=== PATIENT | female | born 1975 | race Caucasian/White ===

== ENCOUNTER 2018-04-03 15:31 | Outpatient (CLI) | payer OTHER, SELFPAY ==
[2018-04-03 16:13] LABS: HGB 13.4 g/dL (12.0-15.5); Mean Corp. HGB Concentration 33.5 g/dL (32.0-36.0); Mean Corpuscular Hemoglobin 31.4 pg (27.0-33.0); Mean Corpuscular Volume 93.7 fL (80-95); Mean Platelet Volume 10.8 fL (8.0-11.0); Platelet Count 231 x1000/uL (130-400); RBC 4.27 m/cumm (4.00-5.20); RBC Distribution Width 12.8 % (11.7-14.6); White Blood Cell Count 7.52 k/cumm (4.4-10.8)
[2018-04-03 16:50] LABS: Hemoglobin A1C 5.8 % (4.5-6.2)
[2018-04-03 17:30] LABS: ALT 25 U/L (12-78); AST 19 U/L (15-37); Albumin 3.8 g/dL (3.4-5.0); Alkaline Phosphatase 49 U/L (46-116); Anion Gap 7.6 mmol/L (3-11); BUN 13 mg/dL (7-18); Bilirubin, Total 0.2 mg/dL (0.2-1.0); CO2 28.4 mmol/L (21.0-32.0); CREATININE 0.76 mg/dL (0.55-1.02); Calcium 8.5 mg/dL (8.5-10.1); Chloride 103 mmol/L (98-107); Cholesterol 171 mg/dL (50-200); Glucose 104 mg/dL (70-100); HDL Cholesterol 50 mg/dL (40-60); LDL CHOLESTEROL 96 mg/dL (<100); Potassium 3.9 mmol/L (3.5-5.1); Sodium 139 mmol/L (136-145); Total Protein 7.1 g/dL (6.4-8.2); Triglyceride 165 mg/dL (30-150)
== END 2018-04-03 15:51 ==
PROVIDERS: PCP Nurse Practitioner; Visit Provider Nurse Practitioner
DX: Z00.00 Encounter for general adult medical examination without abnormal findings (principal); E66.3 Overweight; Z13.220 Encounter for screening for lipoid disorders
CPT/HCPCS: 36415; 80053; 80061; 83721; 85027; 83036

== ENCOUNTER 2019-06-01 01:19 | Outpatient (CLI) | payer OTHER, SELFPAY ==
--- NOTE | 2019-06-01 15:30 | DI.MAMMO_ITS ---
EXAM: MAMMO SCREENING CLINICAL HISTORY: screening, Z12.39 TECHNIQUE: Mammograms were interpreted according to the usual protocol including computer analysis w [employer] CAD system, tomosynthesis and C-view imaging. COMPARISON: FINDINGS: The breasts are of heterogeneously increased radiodensity. No dominant mass or clumped microcalcific ation identified in either breast. There is a nodular appearing 10 millimeter in diameter medially l ocated left breast radiodensity, this may represent an intramammary lymph node or cyst, however this is incompletely visualized on this routine examination and today's examination is abaseline examinati on, no prior studies available for comparison. Additional evaluation with compression views and ibeth st ultrasound suggested to further characterize this questionable lesion. No additional significant findings in either breast. IMPRESSION: Additional mammographic views of the left breast and left breast ultrasound requested as described agata mccormack. Category 0, breast density category C
== END 2019-06-01 01:39 ==
PROVIDERS: PCP Nurse Practitioner; Visit Provider Nurse Practitioner
DX: Z12.31 Encounter for screening mammogram for malignant neoplasm of breast (principal); R92.8 Other abnormal and inconclusive findings on diagnostic imaging of breast
CPT/HCPCS: 77063; 77067

== ENCOUNTER 2019-06-03 01:40 | Outpatient (CLI) | payer OTHER, SELFPAY ==
--- NOTE | 2019-06-03 | DI.US_ITS ---
EXAM: US BREAST LT LIMITED CLINICAL HISTORY: F/U MAMMO, 10 MM. NODULE, ? CYST OR INTRAMAMMARY LYMPH NODE TECHNIQUE: Ultrasound performed using standard protocol. COMPARISON: MAMMO SCREENING from 06/01/2019 FINDINGS: Additional views of the left breast: Spot compression cc and MLO views with tomography were performe d of the medial and central left breast. There are persistent circumscribed nodules, in the 6 o'cloc k position of the retroareolar tissue as well as in the 9 o'clock position of the medial left breast. Left breast ultrasound: There is a cyst in the 6 o'clock position, 2 centimeters from the nipple caden uring 12 x 6 by 14 millimeters. In the 9 o'clock position, 5 centimeters from the nipple, there is a n 11 x 5 x 7 millimeter cyst. No suspicious masses are seen. No dilated ducts are identified. IMPRESSION: BI-RADS category 2, negative mammogram with benign findings of simple cysts corresponding to the mamm ographic abnormalities. Yearly screening mammography is recommended. DATA REPOSITORY:
== END 2019-06-03 02:00 ==
PROVIDERS: PCP Nurse Practitioner; Visit Provider Nurse Practitioner
DX: Z12.31 Encounter for screening mammogram for malignant neoplasm of breast (principal); R92.8 Other abnormal and inconclusive findings on diagnostic imaging of breast; N60.12 Diffuse cystic mastopathy of left breast
CPT/HCPCS: 76642; 77063; 77067

== ENCOUNTER 2020-04-20 11:22 | Outpatient (CLI) | payer OTHER, SELFPAY ==
[2020-04-20 20:34] LABS: COVID-19 RT-PCR UVMMC Result Negative (Negative)
== END 2020-04-20 11:42 ==
PROVIDERS: PCP Nurse Practitioner; Visit Provider Nurse Practitioner
DX: Z11.52 Encounter for screening for COVID-19 (principal)
CPT/HCPCS: U0003

== ENCOUNTER 2021-08-17 19:48 | Outpatient (REF) | payer OTHER, SELFPAY ==
[2021-08-17 16:26] LABS: Source Nasal/Nares
[2021-08-17 18:40] LABS: COVID-19 PCR Negative (Negative)
== END 2021-08-17 19:49 | disposition home or self-care (01) ==
LOC: LBN 19:48
PROVIDERS: Nurse Practitioner Family; PCP Nurse Practitioner
DX: Z20.822 Contact with and (suspected) exposure to COVID-19 (principal)
CPT/HCPCS: 87635

== ENCOUNTER 2022-01-18 17:35 | Outpatient (REF) | payer OTHER, SELFPAY ==
--- NOTE | 2022-01-18 16:00 | PAPFT_PTH ---
PATIENT: Robert Gomez LOC: [facility] U#:[id number] AGE/SX: 46/F ROOM: RE01/18/[address]: Dena Sorto APRN : 1975 BED: DIS: 01/18/2022 SPEC #: [id number] RECD: 01/18/22 18:04 STATUS: NICHOLAS REJeremy #: [id number] ANTWAN: 01/18/22 16:[address]: Dena Sorto DEPT: [facility] Cytology RECD BY: Opal Rodriguez Tissues: 1 - CX/ENDOCX FOR PAP SMEARS Procedures: PAP THIN PREP/UVM Screening HPV DNA PROBE Comments: [id number]
== END 2022-01-18 17:36 | disposition home or self-care (01) ==
LOC: LBN 17:35
PROVIDERS: PCP Nurse Practitioner; Visit Provider Nurse Practitioner
DX: Z12.4 Encounter for screening for malignant neoplasm of cervix (principal); Z11.51 Encounter for screening for human papillomavirus (HPV)
CPT/HCPCS: 88142; 87624

== ENCOUNTER 2022-02-15 16:30 | Outpatient (REF) | payer OTHER, SELFPAY ==
[2022-02-15 08:47] LABS: HCT 40.3 % (36.0-46.0); MCH 30.1 pg (27.0-33.0); MCHC 32.3 % (32.0-36.0); MCV 93 fL (80-95); MPV 11.3 fL (8.0-11.0); Platelet Count 298 10^3/uL (130-400); RBC 4.32 10^6/uL (3.93-5.22); RDW 12.4 % (11.7-14.6); WBC 7.34 10^3/uL (4.4-10.8)
[2022-02-15 09:10] LABS: ALT 17 U/L (14-59); AST 17 U/L (15-37); Albumin 3.9 g/dL (3.4-5.0); Alkaline Phosphatase 55 U/L (46-116); Anion Gap 5.9 mmol/L (3-11); BUN 11 mg/dL (7-18); Bilirubin, Total 0.6 mg/dL (0.2-1.0); CO2 28.1 mmol/L (21.0-32.0); CREATININE 0.8 mg/dL (0.55-1.02); Calcium 8.6 mg/dL (8.5-10.1); Calculated LDL 101 mg/dL (<100); Chloride 104 mmol/L (98-107); Cholesterol 174 mg/dL (<200); Estimated GFR 93.12 (mL/min/1.73m2); Glucose 89 mg/dL (74-106); HDL Cholesterol 59 mg/dL (40-60); Potassium 4.1 mmol/L (3.5-5.1); Sodium 138 mmol/L (136-145); TSH (W/Ref FT4) 2.58 uIU/mL (0.36-3.74); Total Protein 7.8 g/dL (6.4-8.2); Triglyceride 71 mg/dL (<150)
== END 2022-02-15 16:31 | disposition home or self-care (01) ==
LOC: LBN 16:30
PROVIDERS: PCP Nurse Practitioner; Visit Provider Nurse Practitioner
DX: F41.9 Anxiety disorder, unspecified (principal); Z13.220 Encounter for screening for lipoid disorders
CPT/HCPCS: 80053; 80061; 85027; 84443

== ENCOUNTER → 2022-03-05 02:27 | Outpatient (CLI) | payer OTHER, SELFPAY ==
--- NOTE | 2022-03-05 08:00 | DI.MAMMO_ITS ---
Exam(s) MAMMO SCREENING EXAM: MAMMO SCREENING CLINICAL HISTORY: screening,z12.39 TECHNIQUE: Mammograms were interpreted according to the usual protocol including computer analysis w [employer] CAD system, tomosynthesis and C-view imaging. COMPARISON: 2020 FINDINGS: The breasts are composed of scattered fibroglandular densities, Breast Density category B. No suspicious masses or suspicious microcalcifications are seen. There has been interval decrease in the noted areas of nodularity in the inferior left breast. Cysts were noted on previous ultrasound. No skin thickening or abnormal axillary lymph nodes are seen. There has been no significant change from prior exams. IMPRESSION: BI-RADS Category 1, Negative mammogram Yearly screening mammography is recommended. Breast Density - Category B, scattered fibroglandular densities. A negative radiographic report should not delay biopsy if a dominant or clinically suspicious mass is present. Up to ten percent of cancers are not identified on mammography. A negative report may reinforce clinical impression. Adenosis and dense breasts may obscure an underlying neoplasm. False positive reports average 6 to 10%. Patient will receive a letter notifying them of these results.
== END ==
PROVIDERS: PCP Nurse Practitioner; Visit Provider Nurse Practitioner
DX: Z12.31 Encounter for screening mammogram for malignant neoplasm of breast (principal)
CPT/HCPCS: 77063; 77067

== ENCOUNTER 2023-03-13 13:46 | Outpatient (REF) | payer OTHER, SELFPAY ==
[2023-03-13 16:07] LABS: Abs Immature Grans 0.03 10^3/uL (0.0-0.06); Absolute Basophil Count 0.05 10^3/uL (0.0-0.2); Absolute Eosinophil Count 0.16 10^3/uL (0.0-0.7); Absolute Lymphocyte Count 2.73 10^3/uL (1.2-3.4); Absolute Neutrophil Count 4.04 10^3/uL (1.2-6.7); Basophils % 0.7; Eosinophils % 2.1; HCT 40.9 % (36.0-46.0); HGB 13.6 g/dL (11.2-15.7); Immature Grans % 0.4; Lymphocytes % 36.4; MCH 30.7 pg (27.0-33.0); MCHC 33.3 % (32.0-36.0); MCV 92 fL (80-95); MPV 11.5 fL (8.0-11.0); Monocytes % 6.7; Neutrophils % 53.7; Platelet Count 279 10^3/uL (130-400); RBC 4.43 10^6/uL (3.93-5.22); RDW 12.7 % (11.7-14.6); RDW-SD 43.3 fL; WBC 7.51 10^3/uL (4.4-10.8)
[2023-03-13 16:14] LABS: Hemoglobin A1C 5.3 % (<5.7)
[2023-03-13 16:37] LABS: Vitamin D 25 Total 48.6 ng/mL (30-100)
[2023-03-13 16:44] LABS: ALT 17 U/L (14-59); AST 15 U/L (15-37); Albumin 4.2 g/dL (3.4-5.0); Alkaline Phosphatase 51 U/L (46-116); Anion Gap 11.5 mmol/L (3-11); BUN 9 mg/dL (7-18); Bilirubin, Total 0.5 mg/dL (0.2-1.0); CO2 25.5 mmol/L (21.0-32.0); CREATININE 0.8 mg/dL (0.55-1.02); Calcium 9.2 mg/dL (8.5-10.1); Calculated LDL 104 mg/dL (<100); Chloride 105 mmol/L (98-107); Cholesterol 185 mg/dL (<200); Estimated GFR 92.54 (mL/min/1.73m2); Glucose 87 mg/dL (74-106); HDL Cholesterol 69 mg/dL (40-60); Potassium 4.5 mmol/L (3.5-5.1); Sodium 142 mmol/L (136-145); TSH (W/Ref FT4) 1.77 uIU/mL (0.36-3.74); Total Protein 7.5 g/dL (6.4-8.2); Triglyceride 64 mg/dL (<150); Vitamin B12 311 pg/mL (193-986)
[2023-03-13 17:01] LABS: C-Reactive Protein 0.11 mg/dL (0.0-0.3)
[2023-03-15 12:43] LABS: Lipoprotein (a) <7 nmol/L (<75)
[2023-03-16 10:08] LABS: Apolipoprotein A1, S 166 mg/dL (>=140); Apolipoprotein B, S 80 mg/dL (See Comment); Apolipoprotein B/A 1 ratio 0.5 (See Comment)
[2023-03-21 20:07] LABS: Specimen WB Whole Blood
== END 2023-03-13 13:47 | disposition home or self-care (01) ==
LOC: LBN 13:46
PROVIDERS: PCP Nurse Practitioner; Visit Provider Nurse Practitioner
DX: Z13.220 Encounter for screening for lipoid disorders (principal); Z83.3 Family history of diabetes mellitus; R53.83 Other fatigue; Z78.9 Other specified health status; E55.9 Vitamin D deficiency, unspecified
CPT/HCPCS: 80053; 80061; 81401; 82172; 82306; 83695; 82607; 83036; 84443; 85025; 86140

== ENCOUNTER 2023-07-02 06:18 | Day surgery (SDC) | payer OTHER, SELFPAY ==
[2023-07-02 06:34] VITALS: BP 104/58; PULSE 64; RESP 16; TEMP 36.6; O2SAT 100
[2023-07-02] MEDS: Lactated Ringers 1,000 ML 80 ML IV (06:45)
--- NOTE | 2023-07-02 07:04 | W.ANESPRE ---
General Info Date of Service Date Performed: 07/02/23 Height: 5 ft 5.5 in Weight: 64.3 kg Body Mass Index (BMI): 23.2 Surgical Procedure: Operation Date: 07/02/23 07:35 Proposed Procedure Side Surgeon p Yehuda Nice MD Meds Allergies and Home Medications Allergies Allergy/AdvReac Type Severity Reaction Status Date / Time No Known Allergies Allergy Verified 07/02/23 06:25 Home Medication Medication Instructions Recorded multivitamin (Daily Multi-Vitamin 1 ea PO DAILY 08/06/13 tablet) levonorgestrel 21 mcg/24 hours (8 1 ea intrauterine ONCE #1 implant 12/03/16 yrs) 52 mg intrauterine device (Mirena) lactobacillus combination no.8 3 3,000 mmu cells PO DAILY 06/28/20 billion cell capsule (Adult Probiotic) bupropion HCl 150 mg 24 hr tablet, 150 mg PO QAM #90 tabs 03/05/23 extended release (Wellbutrin XL) blood-glucose sensor (Dexcom G7 #3 ea 04/18/23 Sensor device) B12 1,000 1,000 tab PO DAILY 07/01/23 mcg-methyltetrahydrofolate 680 mcg DFE-B6 1.5 mg chew tablet ashwagandha extract 120 mg capsule 300 mg PO BID 07/01/23 ferrous sulfate 325 mg (65 mg 325 mg PO QDAY 07/01/23 iron) tablet (Feosol) glycine 500 mg capsule 1,000 mg PO DAILY 07/01/23 magnesium L-threonate 48 mg 2,000 mg PO BID 07/01/23 magnesium (667 mg) capsule magnesium citrate 100 mg capsule 200 mg PO DAILY 07/01/23 magnesium oxide 350 mg PO DAILY 07/01/23 Current Visit Medications: Current Medications Generic Name Dose Route Start Last Admin Trade Name Freq PRN Reason Stop Dose Admin Ringer's Solution 1,000 mls @ 80 mls/hr 07/02/23 06:00 07/02/23 06:45 IV 07/02/23 23:59 80 mls/hr INFUSION ROBY Administration IV Miscellaneous Supplies 1 each 07/02/23 06:00 Iv Access IV 07/02/23 23:59 DIRECTED ROBY Sodium Chloride 0 ml 07/02/23 06:00 Normal Saline Flush 10 Ml Syr IV 07/02/23 23:59 PRN PRN Sodium Chloride 0 ml 07/02/23 06:00 Normal Saline 10 Ml Vial IJ 07/02/23 23:59 DIRECTED PRN Sterile Water 0 ml 07/02/23 06:00 Water,Injection,Sterile 10 Ml Vial IJ 07/02/23 23:59 DIRECTED PRN PFSH Active Problems Active Problems: Problem Status Onset Code Skin lesion of face L98.9 Sleeping difficulties G47.9 Anxiety as acute reaction to exceptional stress F41.1, F43.0 Encounter for screening for other viral diseases Z11.59 PHN (postherpetic neuralgia) B02.29 Vegan diet Z78.9 Encounter for routine history and physical examination Z00.00 Screening for cholesterol level Z13.220 Shingles B02.9 Fatigue R53.83 IUD surveillance 09/13/16 Z30.431 Encounter for routine checking of intrauterine contraceptive device (IUD) 08/06/13 Z30.431 Surgical History Surgical History Tonsillectomy Tobacco Smoking/Tobacco Use Status: Never Alcohol Alcohol Intake: current Alcohol intake frequency: holidays/special occasions only Alcohol type: beer and wine Substance Use Substance use: Never Substance use type: does not use Vital Signs and Lab Results Vital Signs Most Recent Vital Signs in EMR: Most Recent Vital Signs Temp Pulse Resp BP Pulse Ox 36.6 C 64 16 104/58 L 100 07/02/23 06:34 07/02/23 06:34 07/02/23 06:34 07/02/23 06:34 07/02/23 06:34 Point of Care Results Point of Care Results: POC- Test(urine) Negative 07/02/23 06:39 Lab Results Blood Type / Crossmatch: No Data to Display Complete Blood Count: No Data to Display Complete Metabolic Panel: No Data to Display Liver Function Panel: No Data to Display Coagulation Panel: No Data to Display Cardiac Panel: No Data to Display Arterial Blood Gas: No Data to Display Venous Blood Gas: No Data to Display Pancreas Panel: No Data to Display Thyroid Panel: No Data to Display Infectious Disease: No Data to Display Blood Cultures: No Data to Display Toxicology Panel: No Data to Display Panel: No Data to Display Anesthesia Assessment and Plan Anesthesia History Personal History: No History of Anesthesia Complications Family History: No Family History of Anesthesia Complications Exercise Tolerance Exercise Tolerance: Metabolic Equivalents>4 Pertinent Negatives Pertinent Negatives: No Symptoms of GERD, No Major Cardiovascular Symptoms or Complaints, No Major Pulmonary Symptoms or Complaints and No History of CVA/TIA Cardiac & Pulmonary Exam Cardiac Exam: Normal S1/S2 Heart Sounds Pulmonary Exam: Clear Bilateral Breath Sounds Implantable Cardiac Device Does patient have a Pacemaker or an ICD?: No Airway Exam Known Difficult Airway: No Mallampati Class: 1 Mouth Opening: Normal (> 3cm) Thyromental Distance: Greater than 3 cm Neck Range of Motion: Full ROM Neck Circumference: Normal Teeth Condition: Normal Dentition ASA Classification ASA Score: ASA 2 Emergency Case?: No NPO Status NPO Status: NPO Clears >2 hours, Solids >8 hours Status Status: Negative HCG Anesthesia Plan Resuscitation Status: Full Code Anesthesia Technique: General Anesthesia Airway Planned: Natural Airway Monitors Used: Standard Monitors
[2023-07-02 07:06] VITALS: BMI 23.2
--- NOTE | 2023-07-02 08:05 | BOWEL_PTH ---
PATIENT: Robert Gomez LOC: [facility] U#:[id number] AGE/SX: 47/F ROOM: RE07/02/[address]: Efrain Nice : 1975 BED: DIS: 07/02/2023 SPEC #: [id number] RECD: 07/02/23 10:59 STATUS: NICHOLAS RE #: [id number] ANTWAN: 07/02/23 08:[address]: Efrain Nice DEPT: Surgical Specimen RECD BY: Opal Rodriguez ENTERED: 07/02/23 11:14 SP TYPE: Bowel OTHR DR: Dena Sorto APRN Tissues: 1 - BIOPSY BOWEL 2 - BIOPSY BOWEL Procedures: GROSS AND MICRO LEVEL 4 Comments: [id number]
[2023-07-02 08:14] VITALS: BP 95/50; PULSE 75; RESP 16; TEMP 36.5; O2SAT 99
--- NOTE | 2023-07-02 08:28 | W.COLOREPORT ---
Date of service: 07/02/23 Time of Service: 09:03 Colonoscopy Report Procedure Description: PROCEDURES PERFORMED: 1. Colonoscopy with cold forceps polypectomy x 2 PREOPERATIVE DIAGNOSIS: Screening colonoscopy POSTOPERATIVE DIAGNOSIS: Hyperplastic rectal polyps SURGEON: Masha Nice MD INDICATION for procedure: The patient is a 47-year-old healthy woman who has no family history of colon cancer and has no symptoms and no risk factors. First screening colonoscopy. FINDINGS: The terminal ileum was normal. There were no colon polyps found. There is no diverticular disease. There is no inflammation anywhere. There is no hemorrhoidal disease. In the rectum, 2 small, hyperplastic?appearing polyps were removed with cold forceps technique. These were removed to confirm benign histology. SURVEILLANCE interval/FOLLOW-UP: 10 years as long as the path results confirm hyperplastic histology SPECIMENS: yes EBL: Minimal COMPLICATIONS: None QUALITY of prep: Excellent Procedure in detail: The patient gave written consent and was in agreement with the indications, the potential risks as well as the benefits of the procedure. They were taken to the endoscopy suite and laid in the left lateral decubitus position. A timeout was performed and anesthesia was administered which was tolerated well. I started the procedure. Digital rectal and visual examination was performed and grossly within normal limits. A well-lubricated flexible colonoscope was then introduced and passed without any notable difficulty all the way to the cecum identified by the ileocecal valve and the appendiceal orifice. The terminal ileum was intubated and looked completely normal. The scope was then slowly withdrawn with the above-noted findings. The patient tolerated the procedure well and was taken to the PACU in hemodynamically stable condition.
--- NOTE | 2023-07-02 08:28 | W.PM.DSUDISC ---
Date of service: 07/02/23 Time of Service: 08:28 Discharge Plan Disposition Patient Disposition: Home Condition: Good Discharge Details Attending Provider: Efrain Nice Primary Care Provider: Dena Sorto Home Meds and New Rx's Prescriptions: No Action Adult Probiotic 3 billion cell capsule 3,000 mmu cells PO DAILY Rx Instructions: administer with a meal bupropion HCl [Wellbutrin XL] 150 mg tablet extended release 24 hr 150 mg PO QAM Qty: 90 3RF multivitamin [Daily Multi-Vitamin] 1 EACH tablet 1 ea PO DAILY Mirena 1 EACH intrauterine device 1 ea Intrauterine ONCE Qty: 1 (DME) Dexcom G7 Sensor Device See Rx Instructions .Route Qty: 3 3RF Rx Instructions: As directed ashwagandha extract 120 mg capsule 300 mg PO BID magnesium L-threonate 48 mg magnesium (667 mg) capsule 2,000 mg PO BID magnesium citrate 100 mg capsule 200 mg PO DAILY magnesium oxide 200 mg magnesium tablet 350 mg PO DAILY glycine 500 mg capsule 1,000 mg PO DAILY [id number] 1,000mcg-680mcg DFE-1.5 mg tablet,chewable 1,000 tab PO DAILY ferrous sulfate [Feosol] 325 mg (65 mg iron) tablet 325 mg PO QDAY Discharge Instructions Additional Instructions: FINDINGS: Your small intestine and your colon are completely healthy and normal. No diverticulosis. No colon polyps. In the rectum were some small, hyperplastic polyps which are extremely common, benign and they have no risk. They do not grow and they do not cause cancer. They do not cause any symptoms. I removed the 2 of them that I saw in order to confirm and prove that there are indeed this hyperplastic, benign type. No hemorrhoid disease. You should repeat another colonoscopy in 10 years. Stand Alone Forms: Colonoscopy Post Instructions Activity:: Activity as Tolerated Diet:: As Tolerated
--- NOTE | 2023-07-02 08:42 | W.ANESPOSTOP ---
Postoperative Evaluation Date, Time and Location Date Performed: 07/02/23 Time Performed: :24 Patient Location: Day Surgery Unit Vital Signs Most Recent Imported Vital Signs: Most Recent Vital Signs Temp Pulse Resp BP Pulse Ox 36.5 C 75 16 95/50 L 99 07/02/23 08:14 07/02/23 08:14 07/02/23 08:14 07/02/23 08:14 07/02/23 08:14 Pain Score Most Recent Pain Score: Most Recent Pain Score Pain Level 0 07/02/23 08:14 Assessment Mental Status: Awake (Alert & Oriented to Patient Baseline) Airway and Respiratory Function: Patent airway with normal (patient baseline) respiratory exam Cardiovascular Function: Hemodynamically Stable Hydration Status: Adequately Hydrated Nausea & Vomiting: No Nausea or Vomiting Pain: Pt. Denies Any Pain Peripheral Nerve Block: Patient did not receive a nerve block
[2023-07-02 08:50] VITALS: BP 102/53; PULSE 64; RESP 16; TEMP 36.4; O2SAT 100
== END 2023-07-02 09:05 | disposition home or self-care (01) ==
PROVIDERS: PCP Nurse Practitioner; Visit Provider Student in an Organized Health Care Education/Training Program
PROC: 0DJD8ZZ Inspection of Lower Intestinal Tract, Via Natural or Artificial Opening Endoscopic (ICD-10-PCS; CPT 45378; principal; 2023-07-02 07:30)
DX: Z12.11 Encounter for screening for malignant neoplasm of colon (principal); K63.5 Polyp of colon
CPT/HCPCS: 45380; 00123; 81025; 88305; J2001; J2405; J2704

== ENCOUNTER → 2023-07-16 03:48 | Outpatient (CLI) | payer OTHER, SELFPAY ==
--- NOTE | 2023-07-16 14:13 | DI.RAD_ITS ---
Exam(s) XR KNEE LT 3V AP,LAT,ISRAEL EXAM: XR KNEE LT 3V AP,LAT,ISRAEL CLINICAL HISTORY: LT KNEE PAIN,M25.562. TECHNIQUE: 2D digital imaging was performed. Three views. COMPARISON: No exams were available for comparison FINDINGS: BONES: No acute fracture is present. No bony destructive lesion is seen. JOINTS: The knee is normally aligned. No joint effusion is seen. The joint spaces are maintained. No significant degenerative changes. SOFT TISSUE: Normal. IMPRESSION: Normal radiographs of the left knee. DATA REPOSITORY: RADIATION DOSE DELIVERED:
--- NOTE | 2023-07-16 14:13 | DI.RAD_ITS ---
Exam(s) XR KNEE RT 3V AP,LAT,ISRAEL EXAM: XR KNEE RT 3V AP,LAT,ISRAEL CLINICAL HISTORY: RT KNEE PAIN,M25.561. TECHNIQUE: 2D digital imaging was performed. Three views. COMPARISON: CR XR KNEE LT 3V AP,LAT,ISRAEL from 07/16/2023 FINDINGS: BONES: No acute fracture is present. No bony destructive lesion is seen. JOINTS: The knee is normally aligned. No joint effusion is seen. The joint spaces are maintained. N o significant degenerative changes. SOFT TISSUE: Normal. IMPRESSION: Unremarkable radiographs of the right knee. DATA REPOSITORY: RADIATION DOSE DELIVERED:
== END ==
PROVIDERS: PCP Nurse Practitioner; Visit Provider Nurse Practitioner
DX: M25.561 Pain in right knee (principal); M25.562 Pain in left knee
CPT/HCPCS: 73562

== ENCOUNTER → 2023-07-22 04:42 | Outpatient (CLI) | payer OTHER, SELFPAY ==
--- NOTE | 2023-07-22 14:23 | DI.MAMMO_ITS ---
Exam(s) MAMMO SCREENING EXAM: MAMMO SCREENING CLINICAL HISTORY: screening,Z12.39 TECHNIQUE: Bilateral full field digital CC and MLO mammographic images were obtained with 3D tomosyn thesis and utilizing computer aided detection (CAD). COMPARISON: Available for comparison. FINDINGS: Masses/Architectural Distortion: There is a well-circumscribed 7 mm nodule in the central right breas t on the craniocaudad view. Microcalcifications: No suspicious pleomorphic-type are seen. Skin Thickening/Nipple Retraction: None. IMPRESSION: 1. New 7 mm nodule in the central right breast on the CC view. 2. This area should be further evaluated with a spot compression view. Ultrasound should be obtained at that time for additional information. BI-RADS Category 0 - Assessment Incomplete: Need additional imaging evaluation Breast Density - Category C - Heterogeneously dense Breast density category C or D implies that the patient has dense breast tissue. Dense breast tissue is very common and is not abnormal but dense breast tissue can make it harder to find cancer on a ma mmogram. Also, dense breast tissue may increase their breast cancer risk. This information about the result of the mammogram report was provided to the patient to raise their awareness. Use this report when you speak with the patient about their risks for breast cancer, which includes their family hist ory. At that time, you may recommend for more screening tests (Ultrasound or MRI) as they might be us eful based on their risk. A negative radiographic report should not delay biopsy if a dominant or clinically suspicious mass is present. Up to ten percent of cancers are not identified on mammography. A negative report may reinforce clinical impression. Adenosis and dense breasts may obscure an underlying neoplasm. False positive reports average 6 to 10%. Patient will receive a letter notifying them of these results.
== END ==
PROVIDERS: PCP Nurse Practitioner; Visit Provider Nurse Practitioner
DX: Z12.31 Encounter for screening mammogram for malignant neoplasm of breast (principal)
CPT/HCPCS: 77063; 77067

== ENCOUNTER → 2023-07-26 00:33 | Outpatient (CLI) | payer OTHER, SELFPAY ==
--- NOTE | 2023-07-26 | DI.MAMMO_ITS ---
Exam(s) MG MAMMO SCREEN CALL BACK UNI US BREAST RT LIMITED EXAM: MG MAMMO SCREEN CALL BACK UNI CLINICAL HISTORY: F/U MAMMO, NEW 7 MM NODULE CENTRAL RT BREAST. TECHNIQUE: Craniocaudal spot compression digital Mammography view of the rightbreast with Tomosynth esis and right breast ultrasound. COMPARISON: MG MG MAMMO SCREENING from 06/01/2019 MG MG MAMMO SCREEN CALL BACK UNI from 06/03/2019 US US BREAST LT LIMITED from 06/03/2019 MG MG MAMMO SCREENING from 03/05/2022 MG MG MAMMO SCREENING from 07/22/2023 US US BREAST RT LIMITED from 07/26/2023 FINDINGS: Mammography/Tomosynthesis: Masses/Architectural Distortion: Decreased prominence of circumscribed nodule in the central right br east. Microcalcifictions: No suspicious pleomorphic-type are seen. Skin Thickening/Nipple Retraction: None. Right breast US: Echotexture: Normal appearance of the glandular tissue. Shadowing: No suspicious foci. Cyst: 11 o'clock position, 2 cm from the nipple, there is a 5 millimeter cyst. In the 12 o'clock position, 2 cm from the nipple, there is a arm 7 x 3 by 6 millimeter clustered micr ocysts. 4 millimeters the cyst is seen in the medial retroareolar region. Solid lesions: None seen. Ductal dilation: None. IMPRESSION: 1. No evidence of malignancy is noted. Cysts in the superior right breast. 2. Unless there is more urgent need, follow-up screening mammography is recommended, as per [place] guidelines. 3. The findings were discussed with the patient on the date of the examination. BI-RADS Category 2 - Benign Findings Breast Density - Category C - Heterogeneously dense A mammogram that demonstrates density of C or D indicates the patient's breast tissue is dense. Dense breast tissue is very common and is not abnormal, but dense breast tissue can make it harder to find cancer on a mammogram. Also, dense breast tissue may increase their breast cancer risk. This informa tion about the result of the mammogram report was provided to the patient to raise their awareness. U se this report when you speak with the patient about their risks for breast cancer, which includes th eir family history. At that time, you may recommend for more screening tests (Ultrasound or MRI) as t hey might be useful based on their risk. A negative radiographic report should not delay biopsy if a dominant or clinically suspicious mass is present. Up to ten percent of cancers are not identified on mammography. A negative report may reinforce clinical impression. Adenosis and dense breasts may obscure an underlying neoplasm. False positive reports average 6 to 10%. Patient will receive a letter notifying them of these results.
== END ==
PROVIDERS: PCP Nurse Practitioner; Visit Provider Nurse Practitioner
DX: Z12.31 Encounter for screening mammogram for malignant neoplasm of breast (principal); N60.01 Solitary cyst of right breast
CPT/HCPCS: 76642; 77063; 77067

== ENCOUNTER 2024-02-20 21:47 | Outpatient (REF) | payer OTHER, SELFPAY ==
[2024-02-20 19:08] LABS: Abs Immature Grans 0.01 10^3/uL (0.0-0.06); Absolute Basophil Count 0.06 10^3/uL (0.0-0.2); Absolute Eosinophil Count 0.13 10^3/uL (0.0-0.7); Absolute Lymphocyte Count 2.85 10^3/uL (1.2-3.4); Absolute Monocyte Count 0.49 10^3/uL (0.1-0.8); Absolute Neutrophil Count 2.99 10^3/uL (1.2-6.7); Basophils % 0.9 %; HCT 44.8 % (36.0-46.0); HGB 14.5 g/dL (11.2-15.7); Immature Grans % 0.2 %; Lymphocytes % 43.6 %; MCH 32.2 pg (27.0-33.0); MCHC 32.4 % (32.0-36.0); MCV 99 fL (80-95); Monocytes % 7.5 %; Neutrophils % 45.8 %; Platelet Count 301 10^3/uL (130-400); RBC 4.51 10^6/uL (3.93-5.22); RDW 12.7 % (11.7-14.6); RDW-SD 46.6 fL; WBC 6.53 10^3/uL (4.4-10.8)
[2024-02-20 19:24] LABS: Hemoglobin A1C 5.2 % (<5.7)
[2024-02-20 19:33] LABS: ALT 33 U/L (14-59); AST 30 U/L (15-37); FREE T4 0.92 ng/dL (0.76-1.46); GGT 16 U/L; Glucose 85 mg/dL (74-106); TSH 2.25 uIU/mL (0.36-3.74); Uric Acid 3.7 mg/dL (2.6-6.0)
[2024-02-21 18:13] LABS: T3,Free 3.7 pg/mL (2.8-5.3)
== END 2024-02-20 21:48 | disposition home or self-care (01) ==
LOC: NCHCN 21:47
PROVIDERS: PCP Nurse Practitioner; Visit Provider Nurse Practitioner
DX: Z00.00 Encounter for general adult medical examination without abnormal findings (principal); J45.909 Unspecified asthma, uncomplicated
CPT/HCPCS: 82947; 86141; 82977; 83036; 83525; 84439; 84443; 84450; 84460; 84481; 84550; 85025

== ENCOUNTER 2024-09-25 15:05 | Outpatient (REF) | payer OTHER, SELFPAY ==
[2024-09-25 11:19] LABS: Abs Immature Grans 0.01 10^3/uL (0.0-0.06); Absolute Basophil Count 0.04 10^3/uL (0.0-0.2); Absolute Eosinophil Count 0.11 10^3/uL (0.0-0.7); Absolute Lymphocyte Count 2.42 10^3/uL (1.2-3.4); Absolute Monocyte Count 0.45 10^3/uL (0.1-0.8); Absolute Neutrophil Count 3.14 10^3/uL (1.2-6.7); Basophils % 0.6 %; Eosinophils % 1.8 %; HCT 42.8 % (36.0-46.0); Immature Grans % 0.2 %; Lymphocytes % 39.2 %; MCH 30.7 pg (27.0-33.0); MCHC 32.7 % (32.0-36.0); MCV 94 fL (80-95); MPV 10.9 fL (8.0-11.0); Monocytes % 7.3 %; Neutrophils % 50.9 %; Platelet Count 236 10^3/uL (130-400); RBC 4.56 10^6/uL (3.93-5.22); RDW-SD 41.7 fL; WBC 6.17 10^3/uL (4.4-10.8)
[2024-09-25 11:21] LABS: ESR 2 mm/hr (0-20)
[2024-09-25 12:05] LABS: ALT 26 U/L (14-59); AST 19 U/L (15-37); Albumin 3.8 g/dL (3.4-5.0); Alkaline Phosphatase 48 U/L (46-116); Anion Gap 6.3 mmol/L (3-11); BUN 15 mg/dL (7-18); Bilirubin, Total 0.6 mg/dL (0.2-1.0); CO2 29.7 mmol/L (21.0-32.0); CREATININE 0.8 mg/dL (0.55-1.02); Calcium 8.7 mg/dL (8.5-10.1); Calculated LDL 106 mg/dL (<100); Chloride 105 mmol/L (98-107); Cholesterol 177 mg/dL (<200); Glucose 90 mg/dL (74-106); HDL Cholesterol 62 mg/dL (>or=50); Magnesium 2.1 mg/dL (1.8-2.4); Potassium 4.8 mmol/L (3.5-5.1); Sodium 141 mmol/L (136-145); TSH (W/Ref FT4) 2.06 uIU/mL (0.36-3.74); Total Protein 6.7 g/dL (6.4-8.2); Triglyceride 49 mg/dL (<150); Vitamin B12 544 pg/mL (193-986); Vitamin D 25 Total 46 ng/mL (30-100)
[2024-09-25 12:06] LABS: C-Reactive Protein < 0.50 mg/dL (<or=0.5)
[2024-09-25 15:08] LABS: Hemoglobin A1C 5.7 % (<5.7)
[2024-09-25 18:35] LABS: Estradiol 260 pg/mL (See Note); Progesterone 0.4 ng/mL (See Table)
[2024-09-25 18:39] LABS: FSH 4.7 mIU/mL (See Note)
[2024-09-28 22:36] LABS: Baker's Yeast, IgE <0.10 kU/L (<0.70); Broccoli IgE <0.10 kU/L (<0.70); Clam IgE <0.10 kU/L (<0.70); Corn-Food IgE <0.10 kU/L (<0.70); Grapefruit IgE <0.10 kU/L (<0.70); Hazelnut-Food IgE <0.10 kU/L (<0.70); Lime IgE <0.10 kU/L (<0.70); Oyster IgE <0.10 kU/L (<0.70); Scallop IgE <0.10 kU/L (<0.70); Soybean IgE <0.10 kU/L (<0.70); Wasp Venom IgE <0.10 kU/L (<0.70)
[2024-09-28 22:51] LABS: Banana, IgE <0.10 kU/L (<0.70); Barley, IgE <0.10 kU/L (<0.70); Beef IgE 0.36 kU/L (<0.70); Black/White Pepper IgE <0.10 kU/L (<0.70); Cacao/Cocoa, IgE <0.10 kU/L (<0.70); Carrot IgE <0.10 kU/L (<0.70); Cinnamon, IgE <0.10 kU/L (<0.70); Crab IgE <0.10 kU/L (<0.70); Egg Whole IgE <0.10 kU/L (<0.70); Lobster IgE <0.10 kU/L (<0.70); Milk, IgE <0.10 kU/L (<0.70); Onion, IgE <0.10 kU/L (<0.70); Shrimp IgE <0.10 kU/L (<0.70); Silver Birch IgE <0.10 kU/L (<0.70); Strawberry, IgE <0.10 kU/L (<0.70); White Faced Hornet Venom IgE <0.10 kU/L (<0.70); White Potato, IgE <0.10 kU/L (<0.70)
[2024-09-28 23:08] LABS: Apricot IgE <0.10 kU/L (<0.70); Cheese, Mold IgE <0.10 kU/L (<0.70); Cherry IgE <0.10 kU/L (<0.70); Mandarin IgE <0.10 kU/L (<0.70); Plum IgE <0.10 kU/L (<0.70)
[2024-10-01 10:23] LABS: CLASS 0; Nectarine IgE <0.35 kU/L (<0.35); Venom Bumble Bee IgE <0.10 kU/L (<0.35)
== END 2024-09-25 15:06 | disposition home or self-care (01) ==
LOC: LBN 15:05
PROVIDERS: PCP Nurse Practitioner; Visit Provider Nurse Practitioner
DX: E55.9 Vitamin D deficiency, unspecified; Z13.220 Encounter for screening for lipoid disorders; E53.8 Deficiency of other specified B group vitamins; J45.909 Unspecified asthma, uncomplicated; I10 Essential (primary) hypertension; E11.9 Type 2 diabetes mellitus without complications
CPT/HCPCS: 80053; 80061; 82306; 85652; 86003; 82607; 82670; 83001; 83002; 83036; 83735; 84144; 84443; 85025; 86140